=== PATIENT | female | born 1955 | race Caucasian/White ===

== ENCOUNTER 2017-03-16 14:02 | Outpatient (CLI) | payer BC ==
[~2017-03-16 14:02] MED LIST: ASPI81TA2 PO; CLON0.5T4 PO; DOCU250C PO; DULO60CA41 PO; ESTR1PAT67; HYDR-1189 PO; LEVO25TA7 PO; LORA-975 PO; LOVA20TA2 PO; METH500T PO; TRIA1CAP6 PO
== END 2017-03-16 20:41 | disposition home or self-care (01) ==
LOC: SRD 14:02
PROVIDERS: ATTEND Internal Medicine
DX: M19.042 Primary osteoarthritis, left hand (principal); M19.032 Primary osteoarthritis, left wrist